=== PATIENT | female | born 1965 | race Caucasian/White ===

== ENCOUNTER 2016-11-07 02:37 | Emergency (ER) | payer SELFPAY ==
[~2016-11-07] VITALS: Ht 157.5 cm; Wt 65.0 kg
[2016-11-07 02:54] VITALS: BP 161/93; PULSE 98; RESP 18; TEMP 98.1; O2SAT 94
[2016-11-07] MEDS ORDERED: FLUT1SPR5 EACH NARE (02:59)
[2016-11-07] MEDS ORDERED: PRED20 PO (03:12)
[2016-11-07] MEDS ORDERED: IBUP-232 PO (03:12)
--- NOTE | 2016-11-07 03:12 | PD ---
HPI Chief Complaint: Pain: Acute or Chronic Time Seen by Provider: 03:02 Travel History International Travel<30 days: No Contact w/Intl Traveler<30days: No Traveled to known affect area: No History of Present Illness HPI 51-year-old female complains of upper back pain and right leg pain. Patient has history of lupus with frequent exacerbation. Patient states that she started having back pain and right leg pain earlier today. Patient denies any recent injury. Patient denies any headache. Patient denies any neck pain. Patient denies any chest pain or shortness of breath. Patient denies abdominal pain. Patient states that she takes prednisone and anti-inflammatory with good relief of the pain in the past. PFSH Past Medical History Musculoskeletal: Yes (LUPUS) Tetanus Vaccination: Unknown Influenza Vaccination: No ?: Not Past Surgical History Surgical History: No Previous Surgery Social History Alcohol Use: No Tobacco Use: Yes Substance Use: No Allergies-Medications (Allergen,Severity, Reaction): Coded Allergies: No Known Allergies (Unverified , 11/07/16) Reported Meds & Prescriptions Reported Meds & Active Scripts Active Prednisone 20 Mg Tab 20 Mg PO BID Ibuprofen 600 Mg Tab 600 Mg PO Q8HR PRN Reported Flonase Nasal [place] (Fluticasone Nasal [place]) 50 Mcg/Act [place] 50 Mcg EACH NARE BID Review of Systems General / Constitutional: No: Fever Eyes: No: Visual changes HENT: No: Headaches Cardiovascular: No: Chest Pain or Discomfort Respiratory: No: Shortness of Breath Gastrointestinal: No: Abdominal Pain Genitourinary: No: Dysuria Musculoskeletal: Positive: Pain Skin: No Rash Neurologic: No: Weakness Psychiatric: No: Depression Endocrine: No: Polydipsia Hematologic/Lymphatic: No: Easy Bruising Physical Exam Narrative GENERAL: Well-nourished, well-developed patient. SKIN: Warm and dry. HEAD: Normocephalic. EYES: No scleral icterus. No injection or drainage. NECK: Supple, trachea midline. No JVD or lymphadenopathy. CARDIOVASCULAR: Regular rate and rhythm without murmurs, gallops, or rubs. RESPIRATORY: Breath sounds equal bilaterally. No accessory muscle use. GASTROINTESTINAL: Abdomen soft, non-tender, nondistended. MUSCULOSKELETAL: No cyanosis, or edema. BACK: Mild to moderate tenderness on palpation mid thoracic spine area, without obvious deformity. No CVA tenderness. Neurologic exam normal. Data Data Last Documented VS Vital Signs Date Time Temp Pulse Resp B/P Pulse Ox O2 Delivery O2 Flow Rate FiO2 11/07/16 02:54 98.1 98 18 161/93 94 Orders Dexamethasone Inj (Decadron Inj) (11/07/16 03:15) [facility] Medical Decision Making Medical Screen Exam Complete: Yes Emergency Medical Condition: Yes Differential Diagnosis Differential diagnosis including acute exacerbation of pain from lupus., Fracture, dislocation. Narrative Course 51-year-old female with mid back pain and right thigh pain. History of lupus with frequent exacerbation. Decadron 8 mg IM. Motrin 600 mg by mouth given. Diagnosis Primary Impression: Back pain Qualified Code: M54.6 - Chronic midline thoracic back pain Additional Impression: History of lupus Patient Instructions: General Instructions Additional Instructions: Take medications as needed. Follow-up with personal physician. Return if worse. Med/Other Pt SpecificInfo: Prescription(s) given Scripts Prednisone 20 Mg Tab20 Mg PO BID #14 TAB Ref 0 Prov:Michael Cedeño MD 11/07/16 Ibuprofen 600 Mg Che709 Mg PO Q8HR PRN (PAIN) #60 TAB Ref 0 Prov:Michael Cedeño MD 11/07/16 Disposition: 01 DISCHARGE HOME Condition: Stable Michael Cedeño MD Nov 07, 2016 03:12
[2016-11-07] MEDS ORDERED: DEXAMETHASONE SOD PHOS 4 MG/ML VIAL IM ONE (03:15)
[2016-11-07] MEDS ORDERED: IBUPROFEN 600 MG TAB PO ONE (03:45)
== END 2016-11-07 03:50 | disposition home or self-care (01) ==
LOC: NEPC 02:37
DX: M54.6 Pain in thoracic spine (principal); M79.604 Pain in right leg; Z87.39 Personal history of other diseases of the musculoskeletal system and connective tissue; Z72.0 Tobacco use
CPT/HCPCS: 96372; 99283; J1100

== ENCOUNTER 2016-11-07 04:20 | Emergency (ER) | payer SELFPAY ==
[~2016-11-07 04:20] MED LIST: FLUT1SPR5 EACH NARE; IBUP-232 PO; PRED20 PO
[2016-11-07 04:22] VITALS: BP 137/91; PULSE 95; RESP 16; TEMP 97; TEMP 97.7; O2SAT 95
--- NOTE | 2016-11-07 05:14 | PD ---
HPI Chief Complaint: Back/ Neck Pain or Injury Time Seen by Provider: 04:27 Travel History International Travel<30 days: No Contact w/Intl Traveler<30days: No Traveled to known affect area: No History of Present Illness HPI Patient comes back to the emergency department for re-evaluation of back pain that she seen here for a few hours ago. Patient has not filled her prescriptions. Denies any trauma, fevers, IV drug use, loss of bowel or bladder , or change in symptoms from previous visit. Patient states she has been sitting in the waiting room and has not left the hospital yet as she has nowhere to go and she just got off the bus shortly prior to coming to the ER the first time. Patient was given resources for area homeless shelters prior to being discharged previously. Patient denies any new symptoms or complaints. History Social History Alcohol Use: No Tobacco Use: Yes Allergies-Medications (Allergen,Severity, Reaction): Coded Allergies: No Known Allergies (Unverified , 11/07/16) Reported Meds & Prescriptions Reported Meds & Active Scripts Active Prednisone 20 Mg Tab 20 Mg PO BID Ibuprofen 600 Mg Tab 600 Mg PO Q8HR PRN Reported Flonase Nasal [place] (Fluticasone Nasal [place]) 50 Mcg/Act [place] 50 Mcg EACH NARE BID Review of Systems Except as stated in HPI: all other systems reviewed are Neg Physical Exam Narrative GENERAL: Well-developed, overly nourished, in no acute distress, and non-ill appearing. SKIN: Warm and dry. HEAD: Atraumatic. Normocephalic. EYES: Pupils equal and round. EOMI. No scleral icterus. No injection or drainage. ENT: No nasal bleeding or discharge. Mucous membranes pink and moist. NECK: Trachea midline. Supple. No nuclear rigidity. CARDIOVASCULAR: Regular rate and rhythm. No murmur appreciated. RESPIRATORY: No accessory muscle use. No respiratory distress. Clear to auscultation. Breath sounds equal bilaterally. MUSCULOSKELETAL: No obvious deformities. No clubbing. No cyanosis. No edema. Full range of motion. No reproducible tenderness throughout patient's back. Straight leg test is negative bilaterally. NEUROLOGICAL: Awake and alert. No obvious cranial nerve deficits. Motor grossly within normal limits. Normal speech. PSYCHIATRIC: Appropriate mood and affect; insight and judgment normal. Data Data Last Documented VS Vital Signs Date Time Temp Pulse Resp B/P Pulse Ox O2 Delivery O2 Flow Rate FiO2 11/07/16 04:22 97.7 95 16 137/91 95 Room Air MDM Medical Screen Exam Complete: Yes Emergency Medical Condition: No Narrative Course History and physical exam findings are not consistent with an emergent medical condition. Upon reevaluation patient is found sleeping in the room. She was given the option of receiving additional care, but has declined. Therefore the appropriate counseling recommendations were discussed with the patient and she was instructed to follow-up with her primary care physician as soon as possible for reevaluation. Patient was also informed of community resources from which she can obtain additional care. She is agreeable and verbalizes an understanding of the proposed plan. The patient states she will immediately return to the emergency department if her current complaints do not improve, new symptoms arise, or emergent condition develops. Patient ambulated out of the emergency department without difficulty. Primary Impression: Encounter for medical screening examination Disposition: [facility]-ED USE ONLY Condition: Stable Usama Hicks Nov 07, 2016 05:14
== END 2016-11-07 11:21 | disposition left against medical advice (07) ==
LOC: NEPB 04:20
DX: M54.9 Dorsalgia, unspecified (principal); Z72.0 Tobacco use
CPT/HCPCS: 99281